=== PATIENT | male | born 1970 | race Caucasian/White ===

== ENCOUNTER 2016-12-13 01:10 | Emergency (ER) | payer MEDICARE, OTHER ==
[~2016-12-13 01:10] MED LIST: DIAZEPAM5 MG PO; HYDROCODON-ACE1 EAC4 PO; IPRAT-ALBUT 0.5-3 ML INH; KEPPRA500 MG PO; LEVOTHYROXINE50 MCG PO; NORVASC10 MG PO
== END 2016-12-13 03:00 | disposition home or self-care (01) ==
LOC: ER1 01:10
DX: J95.03 Malfunction of tracheostomy stoma (principal); Z85.818 Personal history of malignant neoplasm of other sites of lip, oral cavity, and pharynx
CPT/HCPCS: 99284